=== PATIENT | male | born 1970 | race Caucasian/White ===

== ENCOUNTER 2021-05-26 21:57 | Observation (INO) ==
[2021-05-26] MEDS ORDERED: SODIUM CHLORIDE 0.9% 1000ML 1,000 ML IV SCH (23:30)
[2021-05-26 23:57] LABS: Basophils # (auto) 0.02 K/uL (0-0.2); Basophils % (auto) 0.1 %; Hematocrit (blood only) 45.9 % (42-52); Hemoglobin 15.3 g/dL (14.0-18.0); Immature Granulocytes # (auto) 0.06 K/uL (0.00-0.02); Immature Granulocytes % (auto) 0.3 %; Lymphocytes # (auto) 0.77 K/uL (1.2-3.4); Lymphocytes % (auto) 3.9 %; Mean Corpuscular Hemoglobin 29.6 pg (25-34); Mean Corpuscular Hgb Conc 33.3 g/dL (32-36); Mean Corpuscular Volume 88.8 fL (80-100); Mean Platelet Volume 9.6 fL (7.4-10.4); Monocytes # (auto) 1.59 K/uL (0.11-0.59); Monocytes % (auto) 8.1 %; Neutrophils % (auto) 87.6 %; Platelet Count 209 K/uL (130-400); RDW Coefficient of Variation 13.3 % (11.5-14.5); RDW Standard Deviation 43.5 fL (36.4-46.3); Red Blood Count 5.17 M/uL (4.7-6.1); White Blood Count 19.64 K/uL (4.8-10.8)
[2021-05-27 00:05] LABS: INR 1.1 (0.9-1.1); Prothrombin Time 11.5 Seconds (9.0-12.0)
[2021-05-27] MEDS ORDERED: CEFEPIME 2,000 MG/20 ML VIAL IV STA (00:20)
--- NOTE | 2021-05-27 00:21 | Emergency Department Note ---
History of Present Illness General Chief complaint: Fever Stated complaint: EAR ACHE, FEVER, Time Seen by Provider: 05/26/21 23:00 Source: patient Mode of arrival: ambulatory Limitations: no limitations History of Present Illness Provider complaint: Fever, cough, earache Onset (ago): hour(s) Maximum Pain Intensity: 5 Associated symptoms: + cough, + fever/chills, + loss of appetite and + malaise; no chest pain, no headaches, no nausea/vomiting, no shortness of breath or no syncope Treatments prior to arrival: none This is a 50-year-old male who presents emergency department complaining of fevers, cough, and earache that began today. Patient states this morning he had a slight pain in his ear however went to work all day. Patient states he felt ill when he came home, had a slight temperature and laid down to take a nap. He states when he woke up the ear pain was gone and he felt slightly better, however after that he felt more fatigued again and then spiked a temperature to 104 F. Patient denies any known sick contact. Denies any recent illness, travel, new medication, or change in diet. Patient is a diabetic. States his blood sugars have been well controlled. Patient states he does still smoke. Denies headaches, dizziness, vision changes, rhinorrhea, nasal congestion, sore throat, chest pain, shortness of breath, nausea or vomiting, abdominal pain, change in urine, or leg swelling. He states he did have mild diarrhea. Family bedside states they noticed increased cough recently. Patient states he has a chronic cough, although family states it was more severe today and lasting longer. He states cough is nonproductive. Pt seen during a time of high acuity and national emergency pandemic while wearing PPE. Home Medications Medication Instructions Recorded Confirmed Type acetaminophen 500 mg tablet 1,000 mg PO DIRECTED PRN 05/26/21 05/26/21 History (Tylenol Extra Strength) metformin 500 mg tablet 500 mg PO BIDM 05/26/21 05/26/21 History sitagliptin 50 mg tablet (Januvia) 50 mg PO DAILY 05/26/21 05/26/21 History cefpodoxime 200 mg tablet 200 mg PO Q12H #10 tab 05/28/21 Rx doxycycline monohydrate 100 mg 100 mg PO BID 5 Days #10 tab 05/28/21 Rx tablet Allergies Allergy/AdvReac Type Severity Reaction Status Date / Time No Known Allergies Allergy Verified 05/26/21 22:35 Past Med/Surg History Social History Smoking Status: Current every day smoker Tobacco Type: Cigarettes Hx Alcohol Use: No Hx Substance Use: No Current Living Situation: Other Current Living Situation Comment: lives with partner Feels Safe at Home: Yes Safety Concerns: Feels Safe At This Time Review of Systems A total of 10 systems reviewed and were otherwise negative All systems reviewed & are unremarkable except as noted in HPI & below Physical Exam Vital Signs Vital Signs - 24 hr 05/26/21 21:58 05/26/21 22:05 05/26/21 23:22 Temperature 37.1 C Temperature Source Temporal Artery Scan Pulse Rate 126 H Respiratory Rate 20 Respiratory Effort / Characteristics Non-Labored Blood Pressure 150/79 H Blood Pressure [Right Arm] 128/79 129/79 Blood Pressure Mean 102 Blood Pressure Mean [Right Arm] 95 95 Blood Pressure Position Sitting Blood Pressure Position [Right Arm] Lying Pulse Oximetry 95 97 Oxygen Delivery Method Room Air Room Air Sepsis Recent Fever Within 48 Hours No Sepsis New/Unexplained Change in Mental Status No Sepsis Action Taken by Nursing No Action Required 05/27/21 00:07 05/27/21 00:22 05/27/21 01:00 Temperature Temperature Source Pulse Rate Respiratory Rate 16 Respiratory Effort / Characteristics Non-Labored Non-Labored Blood Pressure Blood Pressure [Right Arm] 138/75 Blood Pressure Mean Blood Pressure Mean [Right Arm] 96 Blood Pressure Position Blood Pressure Position [Right Arm] Lying Pulse Oximetry 97 Oxygen Delivery Method Room Air Sepsis Recent Fever Within 48 Hours Sepsis New/Unexplained Change in Mental Status Sepsis Action Taken by Nursing 05/27/21 01:30 05/27/21 02:00 Temperature Temperature Source Pulse Rate Respiratory Rate Respiratory Effort / Characteristics Non-Labored Non-Labored Blood Pressure Blood Pressure [Right Arm] Blood Pressure Mean Blood Pressure Mean [Right Arm] Blood Pressure Position Blood Pressure Position [Right Arm] Pulse Oximetry Oxygen Delivery Method Sepsis Recent Fever Within 48 Hours Sepsis New/Unexplained Change in Mental Status Sepsis Action Taken by Nursing GENERAL: alert, well appearing, well nourished, no distress, non-toxic EYE EXAM: normal conjunctiva, PERRL and EOM's grossly intact, no nystagmus EARS: TMs clear bilaterally without erythema or effusion. No edema along the canals. OROPHARYNX: no exudate, no erythema, lips, buccal mucosa, and tongue normal and mucous membranes are moist NECK: supple, no nuchal rigidity, no adenopathy, non-tender, FROM LUNGS: Clear to auscultation. Normal chest wall mechanics, no w/r/r HEART: no murmurs, S1 normal and S2 normal ABDOMEN: abdomen soft, non-tender, normo-active bowel sounds, no masses, no rebound or guarding. BACK: Back is symmetrical on inspection and there is no deformity, no midline tenderness, no CVA tenderness. SKIN: no rashes and no bruising, no petechiae UPPER EXTREMITIES: upper extremities are grossly normal. FROM, nml pulses b/l. LOWER EXTREMITIES: No pitting edema. FROM, nml pulses b/l. NEURO EXAM: Normal sensorium, cranial nerves II-XII grossly intact, normal speech, no gross weakness of arms, no gross weakness of legs. Gross sensation intact. Course Administered Medications Discontinued Medications Acetaminophen (Acetaminophen 325 Mg Tab) 650 mg PO Q4H PRN PRN Reason: Pain or Fever Stop: 06/26/21 05:07 Last Admin: 05/27/21 23:14 Dose: 650 mg Documented by: [id number] Albuterol (Albuterol Hfa 8 Gm Inhaler) 1 puffs INH QIDR [facility] Stop: 06/26/21 06:59 Last Admin: 05/27/21 07:24 Dose: 1 puffs Documented by: [id number] Enoxaparin Sodium (Enoxaparin Inj 40 Mg/0.4 Ml Syr) 40 mg SQ Q24H [facility] Stop: 06/26/21 08:59 Last Admin: 05/28/21 08:13 Dose: Not Given Documented by: [id number] Admin: 05/27/21 08:19 Dose: 40 mg Documented by: [id number] Sodium Chloride (Nss 1000ml) 1,000 mls @ 999 mls/hr IV .Q1H1M AV Stop: 05/27/21 00:30 Last Infusion: 05/27/21 01:05 Dose: 0 mls/hr Documented by: [id number] Admin: 05/26/21 23:59 Dose: 999 mls/hr Documented by: [id number] Cefepime HCl (Maxipime) 2,000 mg in 20 mls @ 5 mls/min IV NOW STA; Protocol Stop: 05/27/21 00:23 Last Admin: 05/27/21 00:37 Dose: 5 mls/min Documented by: [id number] Magnesium Sulfate/Dextrose (Magnesium Sulfate / D5w) 1 gm in 100 mls @ 100 mls/hr IV NOW STA Stop: 05/27/21 01:46 Last Infusion: 05/27/21 02:00 Dose: 0 mls/hr Documented by: [id number] Admin: 05/27/21 00:52 Dose: 100 mls/hr Documented by: [id number] Sodium Chloride (Nss 1000ml) 1,000 mls @ 250 mls/hr IV .Q4H AV Stop: 06/26/21 01:29 Last Infusion: 05/27/21 06:12 Dose: 0 mls/hr Documented by: [id number] Admin: 05/27/21 01:26 Dose: 250 mls/hr Documented by: [id number] Sodium Chloride (1/2 Nss) 1,000 mls @ 100 mls/hr IV .Q10H AV Stop: 05/27/21 15:07 Last Infusion: 05/27/21 16:45 Dose: 0 mls/hr Documented by: [id number] Admin: 05/27/21 06:13 Dose: 100 mls/hr Documented by: [id number] Ceftriaxone Sodium 2,000 mg/ (Dextrose) 70 mls @ 100 mls/hr IV DAILY AV; Protocol Stop: 06/03/21 08:59 Last Infusion: 05/28/21 08:54 Dose: 0 mls/hr Documented by: [id number] Admin: 05/28/21 08:12 Dose: 100 mls/hr Documented by: [id number] Infusion: 05/27/21 10:56 Dose: 0 mls/hr Documented by: [id number] Admin: 05/27/21 10:14 Dose: 100 mls/hr Documented by: [id number] Doxycycline Hyclate 100 mg/ (Dextrose) 110 mls @ 50 mls/hr IV Q12H AV Stop: 06/03/21 05:59 Last Infusion: 05/28/21 10:08 Dose: 0 mls/hr Documented by: [id number] Admin: 05/28/21 08:12 Dose: 50 mls/hr Documented by: [id number] Infusion: 05/27/21 22:16 Dose: 0 mls/hr Documented by: [id number] Admin: 05/27/21 20:10 Dose: 50 mls/hr Documented by: [id number] Infusion: 05/27/21 09:46 Dose: 0 mls/hr Documented by: [id number] Admin: 05/27/21 07:34 Dose: 50 mls/hr Documented by: [id number] Insulin Aspart (Insulin Aspart Per Unit) 0 units SC ACHS AV Stop: 06/26/21 07:29 Last Admin: 05/28/21 12:29 Dose: 5 units Documented by: [id number] Cosigned by: [id number] Admin: 05/28/21 08:30 Dose: 7 units Documented by: [id number] Cosigned by: [id number] Admin: 05/27/21 21:24 Dose: Not Given Documented by: [id number] Cosigned by: [id number] Admin: 05/27/21 17:34 Dose: 3 units Documented by: [id number] Cosigned by: [id number] Admin: 05/27/21 13:06 Dose: 3 units Documented by: [id number] Cosigned by: [id number] Admin: 05/27/21 08:54 Dose: 5 units Documented by: [id number] Cosigned by: [id number] Ipratropium [place] (Ipratropium [place] Hfa Inhaler) 1 puffs INH QIDR [facility] Stop: 06/26/21 06:59 Last Admin: 05/27/21 07:23 Dose: 1 puffs Documented by: [id number] Medical Decision Making Differential Diagnosis Differential diagnosis: Etiologies such as viral syndrome, otitis, pharyngitis, pneumonia, influenza, meningitis, urinary tract infection, sepsis, bacteremia, as well as others were entertained. Medical Records Attestation: I reviewed the patient's medical records. Home Medications Current Medication List: was personally reviewed by me Laboratory Data Attestation: I reviewed the patient's lab results. Result diagrams: 05/28/21 06:51 05/28/21 06:51 Lab Results 05/26/21 05/26/21 05/26/21 Range/Units 23:43 23:43 23:43 WBC 19.64 H (4.8-10.8) K/uL RBC 5.17 (4.7-6.1) M/uL Hgb 15.3 (14.0-18.0) g/dL Hct 45.9 (42-52) % MCV 88.8 (80-100) fL MCH 29.6 (25-34) pg MCHC 33.3 (32-36) g/dL RDW Std Deviation 43.5 (36.4-46.3) fL RDW Coeff of Reji 13.3 (11.5-14.5) % Plt Count 209 (130-400) K/uL MPV 9.6 (7.4-10.4) fL Immature Gran % (Auto) 0.3 % Neut % (Auto) 87.6 % Lymph % (Auto) 3.9 % [place] % (Auto) 8.1 % Eos % (Auto) 0.0 % Baso % (Auto) 0.1 % Neut # (Auto) 17.20 H (1.4-6.5) K/uL Lymph # (Auto) 0.77 L (1.2-3.4) K/uL [place] # (Auto) 1.59 H (0.11-0.59) K/uL Eos # (Auto) 0.00 (0-0.5) K/uL Baso # (Auto) 0.02 (0-0.2) K/uL Immature Gran # (Auto) 0.06 H (0.00-0.02) K/uL PT 11.5 (9.0-12.0) Seconds INR 1.1 (0.9-1.1) Sodium 132 L (136-145) mmol/L Potassium 3.7 (3.5-5.1) mmol/L Chloride 100 (98-107) mmol/L Carbon Dioxide 23 (21-32) mmol/L Anion Gap 9 (3-11) BUN 17 (6-23) mg/dl Creatinine 1.16 (0.6-1.4) mg/dl Est Cr Clr Drug Dosing 94.9 ml/min Est GFR ( Amer) 84.0 ml/min Est GFR (Non-Af Amer) 72.5 ml/min BUN/Creatinine Ratio 14.7 (10-20) Glucose 175 H (70-99(Fasting)) mg/dl Lactate (0.4-2.0) mmol/L Calcium 8.9 (8.5-10.1) mg/dl Magnesium 1.6 L (1.7-2.4) mg/dl Total Bilirubin 0.6 (0.2-1.0) mg/dl AST 14 (13-39) U/L ALT 35 (7-52) U/L Alkaline Phosphatase 73 (34-104) U/L Troponin I High Sens 12.2 (0-20) pg/ml Total Protein 7.3 (6.0-8.3) gm/dl Albumin 4.3 (3.4-5.0) gm/dl Globulin 3.0 (2.5-4.0) gm/dl Albumin/Globulin Ratio 1.4 (0.9-2) Procalcitonin (0-0.5) ng/ml Urine Color Urine Appearance (Clear) Urine pH (4.5-7.5) Ur Specific [place] (1.000-1.030) Urine Protein (Negative) Urine Glucose (UA) (Negative) Urine Ketones (Negative) Urine Blood (Negative) Urine Nitrite (Negative) Urine Bilirubin (Negative) Urine Urobilinogen (Negative) Ur Leukocyte Esterase (Negative) Adenovirus (PCR) (NotDetected) B. pertussis DNA (PCR) (NotDetected) B.parapertussis DNA PCR (NotDetected) C. pneumoniae DNA (PCR) (NotDetected) Coronavirus OC43 (PCR) (NotDetected) Coronavirus HKU1 (PCR) (NotDetected) Coronavirus 229E (PCR) (NotDetected) SARS-CoV-2 (PCR) (NotDetected) Coronavirus NL63 (PCR) (NotDetected) Human Metapneumovir PCR (NotDetected) Influenza Type A (PCR) (NotDetected) Influenza Type B (PCR) (NotDetected) M. pneumoniae (PCR) (NotDetected) Parainfluenza 1 (PCR) (NotDetected) Parainfluenza 2 (PCR) (NotDetected) Parainfluenza 3 (PCR) (NotDetected) Parainfluenza 4 (PCR) (NotDetected) RSV (PCR) (NotDetected) Entero/Rhino (PCR) (NotDetected) 05/26/21 05/26/21 05/26/21 Range/Units 23:43 23:43 Unknown WBC (4.8-10.8) K/uL RBC (4.7-6.1) M/uL Hgb (14.0-18.0) g/dL Hct (42-52) % MCV (80-100) fL MCH (25-34) pg MCHC (32-36) g/dL RDW Std Deviation (36.4-46.3) fL RDW Coeff of Reji (11.5-14.5) % Plt Count (130-400) K/uL MPV (7.4-10.4) fL Immature Gran % (Auto) % Neut % (Auto) % Lymph % (Auto) % [place] % (Auto) % Eos % (Auto) % Baso % (Auto) % Neut # (Auto) (1.4-6.5) K/uL Lymph # (Auto) (1.2-3.4) K/uL [place] # (Auto) (0.11-0.59) K/uL Eos # (Auto) (0-0.5) K/uL Baso # (Auto) (0-0.2) K/uL Immature Gran # (Auto) (0.00-0.02) K/uL PT (9.0-12.0) Seconds INR (0.9-1.1) Sodium (136-145) mmol/L Potassium (3.5-5.1) mmol/L Chloride (98-107) mmol/L Carbon Dioxide (21-32) mmol/L Anion Gap (3-11) BUN (6-23) mg/dl Creatinine (0.6-1.4) mg/dl Est Cr Clr Drug Dosing ml/min Est GFR ( Amer) ml/min Est GFR (Non-Af Amer) ml/min BUN/Creatinine Ratio (10-20) Glucose (70-99(Fasting)) mg/dl Lactate 1.1 (0.4-2.0) mmol/L Calcium (8.5-10.1) mg/dl Magnesium (1.7-2.4) mg/dl Total Bilirubin (0.2-1.0) mg/dl AST (13-39) U/L ALT (7-52) U/L Alkaline Phosphatase (34-104) U/L Troponin I High Sens (0-20) pg/ml Total Protein (6.0-8.3) gm/dl Albumin (3.4-5.0) gm/dl Globulin (2.5-4.0) gm/dl Albumin/Globulin Ratio (0.9-2) Procalcitonin 1.94 H (0-0.5) ng/ml Urine Color Urine Appearance (Clear) Urine pH (4.5-7.5) Ur Specific [place] (1.000-1.030) Urine Protein (Negative) Urine Glucose (UA) (Negative) Urine Ketones (Negative) Urine Blood (Negative) Urine Nitrite (Negative) Urine Bilirubin (Negative) Urine Urobilinogen (Negative) Ur Leukocyte Esterase (Negative) Adenovirus (PCR) Not Detected (NotDetected) B. pertussis DNA (PCR) Not Detected (NotDetected) B.parapertussis DNA PCR Not Detected (NotDetected) C. pneumoniae DNA (PCR) Not Detected (NotDetected) Coronavirus OC43 (PCR) Not Detected (NotDetected) Coronavirus HKU1 (PCR) Not Detected (NotDetected) Coronavirus 229E (PCR) Not Detected (NotDetected) SARS-CoV-2 (PCR) Not Detected (NotDetected) Coronavirus NL63 (PCR) Not Detected (NotDetected) Human Metapneumovir PCR Not Detected (NotDetected) Influenza Type A (PCR) Not Detected (NotDetected) Influenza Type B (PCR) Not Detected (NotDetected) M. pneumoniae (PCR) Not Detected (NotDetected) Parainfluenza 1 (PCR) Not Detected (NotDetected) Parainfluenza 2 (PCR) Not Detected (NotDetected) Parainfluenza 3 (PCR) Not Detected (NotDetected) Parainfluenza 4 (PCR) Not Detected (NotDetected) RSV (PCR) Not Detected (NotDetected) Entero/Rhino (PCR) Not Detected (NotDetected) 05/27/21 Range/Units 01:45 WBC (4.8-10.8) K/uL RBC (4.7-6.1) M/uL Hgb (14.0-18.0) g/dL Hct (42-52) % MCV (80-100) fL MCH (25-34) pg MCHC (32-36) g/dL RDW Std Deviation (36.4-46.3) fL RDW Coeff of Reji (11.5-14.5) % Plt Count (130-400) K/uL MPV (7.4-10.4) fL Immature Gran % (Auto) % Neut % (Auto) % Lymph % (Auto) % [place] % (Auto) % Eos % (Auto) % Baso % (Auto) % Neut # (Auto) (1.4-6.5) K/uL Lymph # (Auto) (1.2-3.4) K/uL [place] # (Auto) (0.11-0.59) K/uL Eos # (Auto) (0-0.5) K/uL Baso # (Auto) (0-0.2) K/uL Immature Gran # (Auto) (0.00-0.02) K/uL PT (9.0-12.0) Seconds INR (0.9-1.1) Sodium (136-145) mmol/L Potassium (3.5-5.1) mmol/L Chloride (98-107) mmol/L Carbon Dioxide (21-32) mmol/L Anion Gap (3-11) BUN (6-23) mg/dl Creatinine (0.6-1.4) mg/dl Est Cr Clr Drug Dosing ml/min Est GFR ( Amer) ml/min Est GFR (Non-Af Amer) ml/min BUN/Creatinine Ratio (10-20) Glucose (70-99(Fasting)) mg/dl Lactate (0.4-2.0) mmol/L Calcium (8.5-10.1) mg/dl Magnesium (1.7-2.4) mg/dl Total Bilirubin (0.2-1.0) mg/dl AST (13-39) U/L ALT (7-52) U/L Alkaline Phosphatase (34-104) U/L Troponin I High Sens (0-20) pg/ml Total Protein (6.0-8.3) gm/dl Albumin (3.4-5.0) gm/dl Globulin (2.5-4.0) gm/dl Albumin/Globulin Ratio (0.9-2) Procalcitonin (0-0.5) ng/ml Urine Color Yellow Urine Appearance Clear (Clear) Urine pH 5.5 (4.5-7.5) Ur Specific [place] 1.015 (1.000-1.030) Urine Protein Negative (Negative) Urine Glucose (UA) Negative (Negative) Urine Ketones Negative (Negative) Urine Blood Negative (Negative) Urine Nitrite Negative (Negative) Urine Bilirubin Negative (Negative) Urine Urobilinogen Negative (Negative) Ur Leukocyte Esterase Negative (Negative) Adenovirus (PCR) (NotDetected) B. pertussis DNA (PCR) (NotDetected) B.parapertussis DNA PCR (NotDetected) C. pneumoniae DNA (PCR) (NotDetected) Coronavirus OC43 (PCR) (NotDetected) Coronavirus HKU1 (PCR) (NotDetected) Coronavirus 229E (PCR) (NotDetected) SARS-CoV-2 (PCR) (NotDetected) Coronavirus NL63 (PCR) (NotDetected) Human Metapneumovir PCR (NotDetected) Influenza Type A (PCR) (NotDetected) Influenza Type B (PCR) (NotDetected) M. pneumoniae (PCR) (NotDetected) Parainfluenza 1 (PCR) (NotDetected) Parainfluenza 2 (PCR) (NotDetected) Parainfluenza 3 (PCR) (NotDetected) Parainfluenza 4 (PCR) (NotDetected) RSV (PCR) (NotDetected) Entero/Rhino (PCR) (NotDetected) Imaging Data My Impression: X-ray: I interpreted the following studies. Chest: A single view study of the chest was reviewed and was negative for cardiomegaly, effusion, pulmonary edema, or wide mediastinum. Possible evolving infiltrate RLL. Radiologist's Impression: Chest X-Ray 05/26/21 23:22 XR chest 1V portable CLINICAL HISTORY: SEPSIS. COMPARISON STUDY: No previous studies for comparison. TECHNIQUE: 1 view of the chest FINDINGS: Single frontal view of the chest demonstrates the cardiomediastinal silhouette to be within normal limits. There is a decreased inspiratory effort with elevation of the hemidiaphragms and crowding of the bronchovascular markings at the lung bases and centrally. The lungs are clear of alveolar opacities. There is no evidence for pleural effusion. There is no evidence for vascular congestion. There is no acute osseous pathology. IMPRESSION: 1. . There is a decreased inspiratory effort with otherwise no acute chest disease. ACT 112: Negative or not required by law. Electronically signed by: Raphael Vasquez M.D. 05/27/2021 7:03 AM MDM Narrative This is a well-appearing 50-year-old male who presents due to concern for fever, body aches, and fatigue at home. Symptoms had improved by the time of arrival here. Due to description and concern, labs are drawn and sent, chest x-ray performed, bio fire nasal swab obtained and urine sample collected. Given patient's history of tobacco abuse, I was concerned with the appearance of his chest x-ray as I thought there was perhaps an evolving pneumonia. Given family noting an increase in his cough, this would be the most likely etiology of the fever. Patient started on the IV antibiotics. No recurrent fever here. Patient was hydrated as a precaution, he was hemodynamically stable throughout. Given significant leukocytosis and elevated procalcitonin, case discussed with hospitalist for additional evaluation and management as a precaution. Culture sent and pending. An order was placed for continuous cardiac monitoring. The monitor shows a rate of _78__ with _normal sinus__ rhythm. Impression & Plan Fever, Tobacco abuse, Pneumonia Discharge Plan Visit Data Chief Complaint: Fever Stated Complaint: EAR ACHE, FEVER, ED Provider: Bren Kerns Discharge Problem: Fever, Tobacco abuse, Pneumonia Patient Disposition: Admitted As Inpatient Discharge Instructions Interventions: ED Discharge Assessment Last Done: 05/27/21 04:34 Discharge Problem: Fever Qualifiers: Fever type: unspecified Qualified Code(s): R50.9 - Fever, unspecified Pneumonia Qualifiers: Pneumonia type: due to unspecified organism Laterality: right Lung location: lower lobe of lung Qualified Code(s): J18.9 - Pneumonia, unspecified organism
[2021-05-27 00:23] LABS: Troponin I High Sensitivity 12.2 pg/ml (0-20)
[2021-05-27 00:26] LABS: Albumin Globulin Ratio 1.4 (0.9-2); Albumin Level 4.3 gm/dl (3.4-5.0); BUN Creatinine Ratio 14.7 (10-20); Bilirubin,Total 0.6 mg/dl (0.2-1.0); Calcium 8.9 mg/dl (8.5-10.1); Creatinine Clr Calc Pharmacy 94.9 ml/min; Est GFR (Non-African American) 72.5 ml/min; Magnesium 1.6 mg/dl (1.7-2.4); Potassium 3.7 mmol/L (3.5-5.1); Total Protein 7.3 gm/dl (6.0-8.3)
[2021-05-27] MEDS ORDERED: MAGNESIUM SULFATE / D5W 1 GM/100 ML BAG IV STA (00:47)
[2021-05-27 00:51] LABS: Adenovirus PCR Not Detected (NotDetected); Bordetella parapertussis PCR Not Detected (NotDetected); Bordetella pertussis PCR Not Detected (NotDetected); Chlamydia pneumoniae PCR Not Detected (NotDetected); Coronavirus 229E PCR Not Detected (NotDetected); Coronavirus CoV-2 (COVID19)PCR Not Detected (NotDetected); Coronavirus HKU1 PCR Not Detected (NotDetected); Coronavirus NL63 PCR Not Detected (NotDetected); Coronavirus OC43PCR Not Detected (NotDetected); Human Metapneumovirus PCR Not Detected (NotDetected); Influenza A PCR Not Detected (NotDetected); Influenza B PCR Not Detected (NotDetected); Mycoplasma pneumoniae PCR Not Detected (NotDetected); Parainfluenza Virus 1 PCR Not Detected (NotDetected); Parainfluenza Virus 2 PCR Not Detected (NotDetected); Parainfluenza Virus 3 PCR Not Detected (NotDetected); Parainfluenza Virus 4 PCR Not Detected (NotDetected); Respiratory Syncytial VirusPCR Not Detected (NotDetected); Rhinovirus/Enterovirus PCR Not Detected (NotDetected)
[2021-05-27] MEDS ORDERED: SODIUM CHLORIDE 0.9% 1000ML 1,000 ML IV SCH (01:30)
[2021-05-27 01:59] LABS: Appearance Urine Clear (Clear); Bilirubin Urine Negative (Negative); Blood Urine Negative (Negative); Color Urine Yellow; Glucose Urine UA Negative (Negative); Ketones Urine Negative (Negative); Leukocyte Esterase Urine Negative (Negative); Nitrite Urine Negative (Negative); Protein Urine Negative (Negative); Specific Gravity Urine 1.015 (1.000-1.030); Urobilinogen Urine Negative (Negative); pH Urine 5.5 (4.5-7.5)
[2021-05-27] MEDS ORDERED: ACETAMINOPHEN 325 MG TAB PO PRN (05:08)
[2021-05-27] MEDS ORDERED: LEVALBUTEROL HCL 1.25 MG/3 ML NEB NEB PRN (05:08)
[2021-05-27] MEDS ORDERED: ONDANSETRON INJ 2 MG/ML 2 ML VIAL IV PRN (05:08)
[2021-05-27] MEDS ORDERED: POLYETHYLENE (MIRALAX) 17 GM PACK PO PRN (05:08)
[2021-05-27] MEDS ORDERED: NITROGLYCERIN SL 0.4 MG/TAB TAB SL PRN (05:08)
[2021-05-27] MEDS ORDERED: SODIUM CHLORIDE 0.45 % 1,000 ML IV SCH (05:08)
[2021-05-27] MEDS ORDERED: GLUCAGON FOR INJ 1 MG VIAL IM PRN (06:00)
[2021-05-27] MEDS ORDERED: GLUCOSE 40% GEL 15 GM TUBE PO PRN (06:00)
[2021-05-27] MEDS ORDERED: CARBOHYDRATES FOR HYPOGLYCEMIA PO PRN (06:00)
[2021-05-27] MEDS ORDERED: GLUCOSE 10 TABS/TUBE PO PRN (06:00)
[2021-05-27] MEDS ORDERED: DEXTROSE 50% 50 ML SYRINGE IV PRN (06:00)
[2021-05-27] MEDS ORDERED: Nursing to Pharmacy Communication SCH (06:15)
[2021-05-27] MEDS ORDERED: IPRATROPIUM BROMIDE HFA INHALER INH SCH (07:00)
[2021-05-27] MEDS ORDERED: ALBUTEROL HFA 8 GM INHALER INH SCH (07:00)
--- NOTE | 2021-05-27 07:04 | XRay Report ---
XR chest 1V portable CLINICAL HISTORY: SEPSIS. COMPARISON STUDY: No previous studies for comparison. TECHNIQUE: 1 view of the chest FINDINGS: Single frontal view of the chest demonstrates the cardiomediastinal silhouette to be within normal li mits. There is a decreased inspiratory effort with elevation of the hemidiaphragms and crowding of th e bronchovascular markings at the lung bases and centrally. The lungs are clear of alveolar opacities . There is no evidence for pleural effusion. There is no evidence for vascular congestion. There is n o acute osseous pathology. IMPRESSION: 1. . There is a decreased inspiratory effort with otherwise no acute chest disease. ACT 112: Negative or not required by law. Electronically signed by: Raphael Vasquez M.D. 05/27/2021 7:03 AM
[2021-05-27] MEDS: DOXYCYCLINE HYCLATE 100 MG in DEXTROSE 5% 100 ML IV SCH ×2 (07:34→20:10)
--- NOTE | 2021-05-27 07:38 | CT Scan Report ---
CT chest diagnostic wo con CLINICAL HISTORY: Cough and fever. Evaluate for pneumonia COMPARISON STUDY: Portable chest from 05/26/2021 CT DOSE: 695.87 mGy.cm TECHNIQUE: Standard CT of the Chest was performed without IV contrast. A dose lowering technique was utilized adhering to the principles of ALARA. FINDINGS: Airway: The airway is clear. No endobronchial lesion is identified. Lungs: There is atelectasis at both lung bases involving the right middle lobe. The lungs are otherwi se clear of acute alveolar opacities, air bronchograms or pulmonary nodules. Pleura: There is no evidence for pleural effusion. There is no evidence for pneumothorax. Mediastinum: There is no evidence for pathologic adenopathy on these limited noncontrast images. The heart size is within normal limits. Minimal coronary artery calcification is present. The thoracic ao rta is within normal limits. There is no evidence for pericardial effusion. Upper abdomen: The adrenal glands are not completely imaged on this study. There is evidence for 1.6 cm left adrenal nodule. There appears to be hypertrophy of the right adrenal gland. There is small hi atal hernia. Osseous structures: There is no acute osseous pathology. IMPRESSION: 1. Mild bibasilar and right middle lobe atelectasis. 2. Otherwise, no acute chest disease. 3. Left adrenal nodule, most likely representing an adenoma. 4. Small hiatal hernia. ACT 112: Negative or not required by law. Electronically signed by: Raphael Vasquez M.D. 05/27/2021 7:36 AM
--- NOTE | 2021-05-27 07:58 | History and Physical Report ---
DATE OF ADMISSION: 05/26/2021. CHIEF COMPLAINT: Fever and cough. HISTORY OF PRESENT ILLNESS: A 50-year-old male with a past medical history significant for diabetes, obesity, ongoing tobacco abuse, who comes with high fevers. The patient says today he has 1-day duration of high fevers on and off. He is having some cough, which prompted him to come to the ER. Denies any shortness of breath. No chest pain, no nausea, no vomiting, no abdominal pain, no diarrhea, no constipation. Has some headache. No blurred visions, no earache, no runny nose, no sore throat. Appetite is okay. No difficulty swallowing. Otherwise, denies any other complaints. Denies any tick bites. The patient is COVID vaccinated. ALLERGIES: No known drug allergies. PAST MEDICAL HISTORY: As mentioned above. PAST SURGICAL HISTORY: None. FAMILY HISTORY: Denies any significant family history. SOCIAL HISTORY: Smokes 1 pack a day for last 20 years. Denies any alcohol use. No drug use. REVIEW OF SYSTEMS: As per HPI. Rest of the review of systems is negative. PHYSICAL EXAMINATION: GENERAL: The patient is obese, not in acute distress. VITAL SIGNS: Temperature 37.1, pulse 89, blood pressure 138/75, oxygen 97% on room air. HEENT: Pupils equal, round and reactive to light. Oral mucosa moist. NECK: No JVD. No neck masses. CARDIOVASCULAR: S1 and S2 heard. Regular rate and rhythm. No murmur, no gallop. RESPIRATORY SYSTEM: Normal AP diameter. Mild bilateral rhonchi. No wheezing. ABDOMEN: Soft, bowel sounds present, nontender, no distention. CENTRAL NERVOUS SYSTEM: Cranial nerves II-XII grossly intact, nonfocal. EXTREMITIES: No edema, no erythema. LABORATORY DATA: WBC 19, hemoglobin 15.3, hematocrit 45.9, platelets 209. PT 11.5, INR 1.1. Sodium 132, potassium 3.7, chloride 100, bicarbonate 23, BUN 17, creatinine 1.16, serum glucose 175, lactate 1.1, calcium 8.9, magnesium 1.6, total bilirubin 0.6. AST 14, ALT 35, alkaline phosphatase 73. Troponin I high sensitivity 12.2. Procalcitonin 1.94. Urinalysis negative. BioFire negative. IMAGING DATA: Chest x-ray, questionable bibasilar infiltrates. EKG: Normal sinus rhythm at a rate of 96. No acute St changes seen. No previous ECGs are available. ASSESSMENT AND PLAN: This is a 50-year-old male who presents with high fever and cough. 1. High fever and cough: Possible pneumonia. The patient has ongoing tobacco abuse. Currently afebrile. Empirically starting on Rocephin and doxycycline. Will get a CT chest to get a better picture. Urinalysis negative and respiratory BioFire is negative. The patient is COVID vaccinated. Follow the cultures and follow the CT scan results and closely monitor in the med tele.Will also get Lyme screen and anaplasma smear. 2. Diabetes: Hold his home medication. Placed him on insulin sliding scale. Follow the blood sugars, follow HbA1c levels. 3. Tobacco abuse: Needs counseling. 4. Deep venous thrombosis prophylaxis: Lovenox. DISPOSITION: Closely monitor in the med tele. PT/OT prior to discharge. Social service to help with discharge planning. Job ID: [id number] MTDD
[2021-05-27 08:01] LABS: Basophils # (auto) 0.02 K/uL (0-0.2); Basophils % (auto) 0.2 %; Eosinophils # (auto) 0.01 K/uL (0-0.5); Eosinophils % (auto) 0.1 %; Hematocrit (blood only) 42.8 % (42-52); Hemoglobin 14.1 g/dL (14.0-18.0); Immature Granulocytes # (auto) 0.02 K/uL (0.00-0.02); Immature Granulocytes % (auto) 0.2 %; Lymphocytes # (auto) 1.12 K/uL (1.2-3.4); Mean Corpuscular Hemoglobin 29.7 pg (25-34); Mean Corpuscular Hgb Conc 32.9 g/dL (32-36); Mean Corpuscular Volume 90.1 fL (80-100); Mean Platelet Volume 9.5 fL (7.4-10.4); Monocytes % (auto) 7.3 %; Neutrophils # (auto) 10.31 K/uL (1.4-6.5); Neutrophils % (auto) 83.2 %; Platelet Count 195 K/uL (130-400); RDW Coefficient of Variation 13.5 % (11.5-14.5); RDW Standard Deviation 44.3 fL (36.4-46.3); Red Blood Count 4.75 M/uL (4.7-6.1); White Blood Count 12.38 K/uL (4.8-10.8)
[2021-05-27] MEDS: ENOXAPARIN INJ 40 MG/0.4 ML SYR SQ SCH (08:19)
[2021-05-27 08:24] LABS: BUN Creatinine Ratio 12.8 (10-20); Calcium 8.1 mg/dl (8.5-10.1); Creatinine Clr Calc Pharmacy 100.2 ml/min; Est GFR (African American) 90.6 ml/min; Est GFR (Non-African American) 78.2 ml/min; Potassium 3.9 mmol/L (3.5-5.1)
[2021-05-27] MEDS: INSULIN ASPART PER UNIT SC SCH ×4 (08:54→21:24)
[2021-05-27] MEDS ORDERED: IPRATROPIUM BROMIDE/ALBUTEROL respimat INH INH SCH (09:00)
[2021-05-27 09:18] LABS: Lyme Ab IgG w/WB Rflx Negative (Negative); Lyme Ab IgM w/WB Rflx Negative (Negative)
[2021-05-27] MEDS: cefTRIAXone SODIUM 2,000 MG in DEXTROSE 5% 50 ML IV SCH (10:14)
[2021-05-27] MEDS ORDERED: ALBUTEROL HFA 8 GM INHALER INH PRN (10:22)
[2021-05-27] MEDS ORDERED: IPRATROPIUM BROMIDE HFA INHALER INH PRN (10:23)
--- NOTE | 2021-05-27 11:19 | Hospitalist Progress Note ---
Date of Service May 27, 2021 Assessment & Plan (1) SIRS (systemic inflammatory response syndrome): (2) Fever: Plan: SIRS- meets SIRS criteria with fever and leucocytosis. Still with fever. No definite source of infection identified yet. Procal high at 1.9, leucocytosis improving. CT chest with no pneumonia. UA unremarkable. Respiratory biofire negative. Tick borne serology negative so far. F/u on blood clx results. Continue ceftriaxone/doxy for now. Continue IVF. ID consult. DM-2- Home oral antidiabetics on hold. Continue SSI. A1c Tobacco abuse- recommend cessation. Nicotine patch if agreeable DVT prophylaxis- Sc lovenox Dispo- Still with fever, work up in progress. Admission and Anticipated Discharge Date Admission Date: May 27, 2021 Subjective Patient was seen and examined at bedside. Feels slightly better. Still having fever. No photophobia, vomiting, neck stiffness, headache. No URI symptoms, chest pain, shortness of breath. No rash or joint pain. No diarrhea or dysuria. Denies any insect or tick bite. No sick contacts. No recent travel. States he was in his normal health prior to this. Physical Exam Physical Exam: General: Lying comfortably in bed, not in distress, on room air HEENT: EOMI, HOANG, MMM. No neck stiffness. Chest: Clear breath sounds bilaterally, no wheezes or crackles CVS: Regular rate and rhythm, normal heart sounds, no murmur Abdomen: Soft, non tender, not distended, normal bowel sounds Neuro: Awake, alert, oriented, conversing well, non focal Extremities: No cyanosis, clubbing or edema no skin rash Results & Data Results & Data ([facility]) Vital Signs (Past 12 Hours) Vital Signs Temp Pulse Pulse Resp BP Pulse Ox 05/27/21 07:24 68 16 95 05/27/21 07:00 82 05/27/21 06:56 38.0 C H 84 20 104/58 L 94 05/27/21 05:04 81 05/27/21 05:00 36.3 C L 87 17 134/79 98 05/27/21 04:22 80 18 127/84 96 05/27/21 01:00 97 05/27/21 00:22 16 05/27/21 00:07 138/75 05/26/21 23:22 129/79 97 Laboratory Results Short CBC 05/26/21 05/27/21 Range/Units 23:43 07:00 WBC 19.64 H 12.38 H (4.8-10.8) K/uL Hgb 15.3 14.1 (14.0-18.0) g/dL Hct 45.9 42.8 (42-52) % Plt Count 209 195 (130-400) K/uL BMP 05/26/21 05/27/21 23:43 07:00 Sodium 132 L 134 L Potassium 3.7 3.9 Chloride 100 103 Carbon Dioxide 23 26 BUN 17 14 Creatinine 1.16 1.09 Glucose 175 H 151 H Calcium 8.9 8.1 L Liver Function 05/26/21 Range/Units 23:43 Total Bilirubin 0.6 (0.2-1.0) mg/dl AST 14 (13-39) U/L ALT 35 (7-52) U/L Alkaline Phosphatase 73 (34-104) U/L Albumin 4.3 (3.4-5.0) gm/dl Urine 05/27/21 Range/Units 01:45 Urine Color Yellow Urine Appearance Clear (Clear) Urine pH 5.5 (4.5-7.5) Ur Specific [place] 1.015 (1.000-1.030) Urine Protein Negative (Negative) Urine Glucose (UA) Negative (Negative) Diagnostic Findings Chest X-Ray 05/26/21 23:22 XR chest 1V portable CLINICAL HISTORY: SEPSIS. COMPARISON STUDY: No previous studies for comparison. TECHNIQUE: 1 view of the chest FINDINGS: Single frontal view of the chest demonstrates the cardiomediastinal silhouette to be within normal limits. There is a decreased inspiratory effort with elevation of the hemidiaphragms and crowding of the bronchovascular markings at the lung bases and centrally. The lungs are clear of alveolar opacities. There is no evidence for pleural effusion. There is no evidence for vascular congestion. There is no acute osseous pathology. IMPRESSION: 1. . There is a decreased inspiratory effort with otherwise no acute chest disease. ACT 112: Negative or not required by law. Electronically signed by: Raphael Vasquez M.D. 05/27/2021 7:[address] 05/27/21 03:36 CT chest diagnostic wo con CLINICAL HISTORY: Cough and fever. Evaluate for pneumonia COMPARISON STUDY: Portable chest from 05/26/2021 CT DOSE: 695.87 mGy.cm TECHNIQUE: Standard CT of the Chest was performed without IV contrast. A dose l owering technique was utilized adhering to the principles of ALARA. FINDINGS: Airway: The airway is clear. No endobronchial lesion is identified. Lungs: There is atelectasis at both lung bases involving the right middle lobe. The lungs are otherwise clear of acute alveolar opacities, air bronchograms or pulmonary nodules. Pleura: There is no evidence for pleural effusion. There is no evidence for pneumothorax. Mediastinum: There is no evidence for pathologic adenopathy on these limited noncontrast images. The heart size is within normal limits. Minimal coronary artery calcification is present. The thoracic aorta is within normal limits. There is no evidence for pericardial effusion. Upper abdomen: The adrenal glands are not completely imaged on this study. There is evidence for 1.6 cm left adrenal nodule. There appears to be hypertrophy of the right adrenal gland. There is small hiatal hernia. Osseous structures: There is no acute osseous pathology. IMPRESSION: 1. Mild bibasilar and right middle lobe atelectasis. 2. Otherwise, no acute chest disease. 3. Left adrenal nodule, most likely representing an adenoma. 4. Small hiatal hernia. ACT 112: Negative or not required by law. Electronically signed by: Raphael Vasquez M.D. 05/27/2021 7:36 AM Medications Administered Current Inpatient Medications Acetaminophen (Acetaminophen 325 Mg Tab) 650 mg PO Q4H PRN PRN Reason: Pain or Fever Stop: 06/26/21 05:07 Albuterol (Albuterol Hfa 8 Gm Inhaler) 1 puffs INH QIDR PRN PRN Reason: Shortness Of Breath Or Wheezing Stop: 06/26/21 06:59 Dextrose (Dextrose 50% 50 Ml Syringe) 25 - 50 ml IV UD PRN; Protocol PRN Reason: Hypoglycemia Protocol Stop: 06/26/21 05:59 Enoxaparin Sodium (Enoxaparin Inj 40 Mg/0.4 Ml Syr) 40 mg SQ Q24H [facility] Stop: 06/26/21 08:59 Last Admin: 05/27/21 08:19 Dose: 40 mg Documented by: Glucagon (Glucagon For Inj 1 Mg Vial) 1 mg IM UD PRN; Protocol PRN Reason: Hypoglycemia Protocol Stop: 06/26/21 05:59 Glucose (Glucose 40% Gel 15 Gm Tube) 15 - 30 gm PO UD PRN; Protocol PRN Reason: Hypoglycemia Protocol Stop: 06/26/21 05:59 Glucose (Glucose 10 Tabs/Tube) 4 - 8 tabs PO UD PRN; Protocol PRN Reason: Hypoglycemia Protocol Stop: 06/26/21 05:59 Sodium Chloride (1/2 Nss) 1,000 mls @ 100 mls/hr IV .Q10H AV Stop: 05/27/21 15:07 Last Admin: 05/27/21 06:13 Dose: 100 mls/hr Documented by: Ceftriaxone Sodium 2,000 mg/ (Dextrose) 70 mls @ 100 mls/hr IV DAILY AV; Protocol Stop: 06/03/21 08:59 Last Infusion: 05/27/21 10:56 Dose: Infused Documented by: Doxycycline Hyclate 100 mg/ (Dextrose) 110 mls @ 50 mls/hr IV Q12H [facility] Stop: 06/03/21 05:59 Last Infusion: 05/27/21 09:46 Dose: Infused Documented by: Insulin Aspart (Insulin Aspart Per Unit) 0 units SC ACHS [facility] Stop: 06/26/21 07:29 Last Admin: 05/27/21 08:54 Dose: 5 units Documented by: Ipratropium [place] (Ipratropium [place] Hfa Inhaler) 1 puffs INH QIDR PRN PRN Reason: Shortness Of Breath Or Wheezing Stop: 06/26/21 06:59 Levalbuterol HCl (Levalbuterol Hcl 1.25 Mg/3 Ml Neb) 1.25 mg NEB Q2H PRN; Protocol PRN Reason: Shortness Of Breath Or Wheezing Stop: 06/26/21 05:07 Miscellaneous (Carbohydrates For Hypoglycemia ) 15 - 30 gm PO UD PRN PRN Reason: Hypoglycemia Treatment Stop: 06/26/21 05:59 Nitroglycerin (Nitroglycerin Sl 0.4 Mg/Tab Tab) 0.4 mg SL UD PRN PRN Reason: Chest Pain Stop: 06/26/21 05:07 Ondansetron HCl (Ondansetron Inj 2 Mg/Ml 2 Ml Vial) 4 mg IV Q6H PRN PRN Reason: Nausea Stop: 06/26/21 05:07 Polyethylene Glycol (Polyethylene (Miralax) 17 Gm Pack) 17 gm PO DAILY PRN PRN Reason: Constipation Stop: 06/26/21 05:07
[2021-05-27 15:51] LABS: Estimated Average Glucose 171 mg/dl; Hemoglobin A1C 7.6 % (4.5-5.6)
--- NOTE | 2021-05-28 05:58 | Electrocardiogram Report ---
Test Reason : Blood Pressure : / mmHG Vent. Rate : 096 BPM Atrial Rate : 096 BPM P-R Int : 138 ms QRS Dur : 092 ms QT Int : 342 ms P-R-T Axes : 045 030 023 degrees QTc Int : 432 ms Normal sinus rhythm Nonspecific T wave abnormality Poor R wave progression, consider anterior OH vs. lead placement vs. LVH Abnormal ECG No previous ECGs available Confirmed by Marshall Perrin ([id number]) on 05/28/2021 5:58:21 AM Referred By: REFERRED SELF Confirmed By:Marshall Perrin
[2021-05-28 07:12] LABS: Basophils # (auto) 0.02 K/uL (0-0.2); Basophils % (auto) 0.3 %; Eosinophils # (auto) 0.06 K/uL (0-0.5); Eosinophils % (auto) 0.9 %; Hematocrit (blood only) 44.6 % (42-52); Hemoglobin 14.7 g/dL (14.0-18.0); Immature Granulocytes # (auto) 0.02 K/uL (0.00-0.02); Immature Granulocytes % (auto) 0.3 %; Lymphocytes # (auto) 1.21 K/uL (1.2-3.4); Lymphocytes % (auto) 18.8 %; Mean Corpuscular Hemoglobin 29.2 pg (25-34); Mean Corpuscular Volume 88.7 fL (80-100); Mean Platelet Volume 9.5 fL (7.4-10.4); Monocytes # (auto) 0.96 K/uL (0.11-0.59); Neutrophils # (auto) 4.15 K/uL (1.4-6.5); Neutrophils % (auto) 64.7 %; Platelet Count 163 K/uL (130-400); RDW Coefficient of Variation 13.2 % (11.5-14.5); Red Blood Count 5.03 M/uL (4.7-6.1); White Blood Count 6.42 K/uL (4.8-10.8)
[2021-05-28 07:36] LABS: BUN Creatinine Ratio 16.8 (10-20); Calcium 8.3 mg/dl (8.5-10.1); Creatinine Clr Calc Pharmacy 115.5 ml/min; Est GFR (Non-African American) 92.3 ml/min; Potassium 3.9 mmol/L (3.5-5.1)
[2021-05-28] MEDS: DOXYCYCLINE HYCLATE 100 MG in DEXTROSE 5% 100 ML IV SCH (08:12)
[2021-05-28] MEDS: cefTRIAXone SODIUM 2,000 MG in DEXTROSE 5% 50 ML IV SCH (08:12)
[2021-05-28] MEDS: ENOXAPARIN INJ 40 MG/0.4 ML SYR SQ SCH (08:13)
[2021-05-28] MEDS: INSULIN ASPART PER UNIT SC SCH ×2 (08:30→12:29)
--- NOTE | 2021-05-28 12:53 | Discharge Summary ---
Date of Service May 28, 2021 Admission HPI Per Admitting Provider A 50-year-old male with a past medical history significant for diabetes, obesity, ongoing tobacco abuse, who comes with high fevers. The patient says today he has 1-day duration of high fevers on and off. He is having some cough, which prompted him to come to the ER. Denies any shortness of breath. No chest pain, no nausea, no vomiting, no abdominal pain, no diarrhea, no constipation. Has some headache. No blurred visions, no earache, no runny nose, no sore throat. Appetite is okay. No difficulty swallowing. Otherwise, denies any other complaints. Denies any tick bites. The patient is COVID vaccinated. Admission Exam Per Admitting Provider GENERAL: The patient is obese, not in acute distress. VITAL SIGNS: Temperature 37.1, pulse 89, blood pressure 138/75, oxygen 97% on room air. HEENT: Pupils equal, round and reactive to light. Oral mucosa moist. NECK: No JVD. No neck masses. CARDIOVASCULAR: S1 and S2 heard. Regular rate and rhythm. No murmur, no gallop. RESPIRATORY SYSTEM: Normal AP diameter. Mild bilateral rhonchi. No wheezing. ABDOMEN: Soft, bowel sounds present, nontender, no distention. CENTRAL NERVOUS SYSTEM: Cranial nerves II-XII grossly intact, nonfocal. EXTREMITIES: No edema, no erythema. Principal Diagnosis SIRS, Fever Discharge Exam General: Sitting comfortably in bed, not in distress, on room air HEENT: EOMI, HOANG, MMM. No neck stiffness. Chest: Clear breath sounds bilaterally, no wheezes or crackles CVS: Regular rate and rhythm, normal heart sounds, no murmur Abdomen: Soft, non tender, not distended, normal bowel sounds Neuro: Awake, alert, oriented, conversing well, non focal Extremities: No cyanosis, clubbing or edema no skin rash Discharge Data Allergies Allergy/AdvReac Type Severity Reaction Status Date / Time No Known Allergies Allergy Verified 05/26/21 22:35 Consultations 05/27/21 02:02 ED Decision to Admit Stat 05/27/21 11:16 Consult Infectious Diseases Routine Ordered Studies 05/27/21 03:36 CT chest diagnostic wo con Urgent Hospital Course (1) SIRS (systemic inflammatory response syndrome): (2) Fever: SIRS- met SIRS criteria on admission with fever and leucocytosis. SIRS resolved, leucocytosis resolved, last fever yesterday. Work up unremarkable so far with no definitive source of infection identified however he feels much better and adamant to go home. Recommended that he wait until afebrile for 24 hours, until blood culture negative at 48 hours and have ID evaluation but patient did not want to stay saying he lives close to the hospital and can come back if he gets worse and his partner is there to look after him. He did not want to wait for ID evaluation. He will be discharged on empiric vantin/doxy to complete 1 week course (equivalent to ceftriaxone and doxy inhouse). Some tick serologies and final blood clx still pending- He will follow up with his new PCP on for the same. New PCP was arranged prior to discharge and I relayed it to him. - Work up- Procal high at 1.9 on admission, leucocytosis now resolved. CT chest with no pneumonia. UA unremarkable. Respiratory biofire negative. Lyme negative. Some tick borne serology still pending. Blood clx negative at 24 hrs. DM-2- Continue home oral antidiabetics Tobacco abuse- recommend cessation. Total Time Total Time Spent Total Time Spent (In Minutes): 32 Discharge Plan Discharge Items Patient Disposition: Home - Self-Care Reason For Visit: FEVER Discharge Diagnosis: SIRS Activity: Resume your previous activity Non-emergency contact: Primary Care Provider Call non-emergency contact if: you have any medication questions, your symptoms worsen and you have a fever Follow-up/Referrals: Grace Hoskins CRNP [Outside Practitioners] - 06/01/21 11:00 am (Date & Time 06/01/2021 11:00 AM Provider PAUL Castaneda [facility] [address] [facility] [facility], [place] [id number] ) Diet: Regular Addtl Attending Provider Instructions: You were here for fever, for which we have not found the source yet. We recommended that you stay until you are fever free for 24 hours, the blood culture results are negative at 48 hours and you are evaluated by Infectious disease however you did not want to stay. However, you have improved on empiric antibiotics, hence we recommend you to continue the empiric antibiotic vantin and doxycycline twice daily as prescribed for the next 5 days. Follow up with the family doctor with the blood work results which are still pending. Your appointment with your new doctor is scheduled for 06/01 8 am. You were incidentally found to have an adrenal nodule, likely an adenoma. Follow up with the family doctor for further work up as needed. If you have worsening symptoms or recurrent fever, please come back to the emergency. Pending Studies at Discharge: Yes (Tick borne serologies, final blood culture results) Stand-Alone Forms: My [facility], Smoking Cessation Medications and DC Order Prescriptions: New cefpodoxime 200 mg tablet 200 mg PO Q12H Qty: 10 RF: 0 doxycycline monohydrate 100 mg tablet 100 mg PO BID 5 Days Qty: 10 RF: 0 Continued metformin 500 mg tablet 500 mg PO BIDM RF: 0 acetaminophen [Tylenol Extra Strength] 500 mg Tablet 1,000 mg PO DIRECTED PRN (Reason: PAIN/FEVER) RF: 0 Januvia 50 mg tablet 50 mg PO DAILY RF: 0 Discharge Orders: Discharge Order (Routine); Ordered 05/28/21 Ordered By: Gerber Francisco/Other Patient Handouts: Managing Type 2 Diabetes Admission Data Admit Date/Time: 05/27/21 03:36 Attending Provider: Gerber Xiao Admit Provider: Bryson Vasquez Primary Care Provider: Kennedi Mclaughlin Other Providers: Bryson Vasquez ; Carl Phillips ; Dangelo Blackman ; Bran Harrington I. ; Tesfaye Lemus II ; Maia Peralta ; Jeffry Reardon ; Ruperto Khoury Other Interventions: Discharge Summary Assessment (RN) Last Done: 05/28/21 12:19
[2021-05-30 20:37] LABS: Babesia microti DNA Not Detected (Not Detected)
[2021-06-02 13:08] LABS: Ehrlichia chaff DNA Bld Negative (Negative)
[2021-06-03 02:11] LABS: Q Fever IgG, Phase I NEGATIVE; Q Fever Phase I IgM Antibody NEGATIVE; Q Fever Phase II IgG Antibody NEGATIVE; Q Fever Phase II IgM Antibody NEGATIVE; R. typhi IgG Ab NOT DETECTED; R. typhi IgM Ab NOT DETECTED; RMSF IgG Ab NOT DETECTED; RMSF IgM Ab NOT DETECTED
== END 2021-05-28 12:50 | disposition home or self-care (01) ==
LOC: ED 21:57 → 2W 05-27 03:36 → INTOOBSV 05-27 03:36 → SUATTDRO 05-27 03:36 → 2W 05-27 04:34